=== PATIENT | male | born 1950 | race Two or more races ===

== ENCOUNTER 2022-12-27 14:13 | Emergency (ER) | payer OTHER, BC ==
[~2022-12-27] VITALS: Ht 180.3 cm; Wt 86.6 kg
[2022-12-27] MEDS ORDERED: AMLODIPINE BESYL5 MG PO (15:52)
[2022-12-27] MEDS ORDERED: LOSARTAN POTAS100 MG PO (15:53)
[2022-12-27] MEDS ORDERED: METFORMIN HCL750 MG PO (15:53)
[2022-12-27] MEDS ORDERED: LEVOTHYROXINE50 MCG PO (15:53)
[2022-12-27 17:42] LABS: HEMATOCRIT 37.4 % (39.0-48.0); HEMOGLOBIN 12.8 g/dL (13-16.00); MEAN CELL VOLUME 88.6 fL (80.0-100.00); MEAN CORPUSCULAR HEMOGLOBIN 30.3 pg (27.00-32.0); MEAN CORPUSCULAR HGB CONC 34.2 g/dl (32.0-36.0); PLATELET COUNT 164 K/uL (150-450); RED BLOOD COUNT 4.22 M/uL (4.00-6.00); RED CELL DISTRIBUTION WIDTH 13.2 % (11.5-14.5)
== END 2022-12-27 19:06 | disposition home or self-care (01) ==
LOC: ER 14:13
PROVIDERS: General Practice
DX: J10.1 Influenza due to other identified influenza virus with other respiratory manifestations (principal); E11.9 Type 2 diabetes mellitus without complications; Z79.84 Long term (current) use of oral hypoglycemic drugs; I10 Essential (primary) hypertension; Z20.822 Contact with and (suspected) exposure to COVID-19